=== PATIENT | male | born 1950 | race Caucasian/White ===

== ENCOUNTER 2023-06-29 06:42 | Inpatient (IN) | payer MEDICARE, OTHER, SELFPAY ==
--- NOTE | 2023-05-26 11:33 | CM ---
Patient is scheduled for an elective L TKR on 06/29/23. Spoke with patient prior to surgery via telephone. Introduced role of Orthopedic Navigator. Patient reports that he lives with his in a one story home. There is one step to enter. He
currently functions independently. He has is a rolling walker, cane, shower seat and raised toilet seat. He has never had VN services. PCP is Dr. Mariaa Henriquez.
Discussed orthopedic program and post surgical plans. Reviewed anticipated length of stay and that goal is for him to return home at discharge. Also reviewed outpatient PT. Patient is in agreement with tentative plan and will go directly to
outpatient PT at [facility]. He will have support from his when he goes home.
Patient will complete online education.
Plan: Orthopedic Navigator will remain available to assist with the care of patient and will reassess discharge needs after surgery.
[2023-06-09 08:43] VITALS: BMI 38.6
--- NOTE | 2023-06-09 08:54 | HPS.HSE ---
Family Physician
-
Family Physician: Mariaa Henriquez
Chief Complaint
-
Advanced primary osteoarthritis of the left knee.
History of Present Illness
The patient is a 72-year-old male presenting today for advanced primary osteoarthritis of the left knee. The patient reports significant left knee pain secondary to this diagnosis. He notes that his current left knee pain is greatly
interfering with his activities of daily living and is overall impacting his quality of life. He has tried and failed multiple conservative treatment measures in the past for his left knee pain. These conservative treatment measures include
self-therapeutic exercises, activity modification, multiple aspirations, cortisone injections, medical management with Tylenol and NSAIDs, and the application of ice and/or heat. Recent x-ray findings of the left knee demonstrated medial joint space
narrowing and periarticular spurs about the patella. He was determined to be in need of a left total knee arthroplasty. He denies any current complaints today such as chest pain, shortness of breath, palpitations, nausea, vomiting, diarrhea,
lightheadedness, dizziness, cough, sore throat, or fever.
Medical History
Past Medical History
Past Medical History: Reports Other
Additional Past Medical History:
1. Osteoarthritis.
2. Hypertension.
3. Hypercholesterolemia.
4. Aortic atherosclerosis.
5. Mild valvular disease.
6. Suspected sleep apnea, sleep study pending.
7. GERD.
8. Diverticulosis.
9. Colon polyps.
10. History of H pylori, treated.
11. Bilateral renal cysts.
12. Diarrhea, likely of infectious origin, 04/2022.
13. Lumbar degenerative disc disease.
14. BPH per abdominal CT 10/2022.
15. Basal cell carcinoma, nose, status post excision.
16. Melanoma, back, status post MOHS.
17. Bilateral macular pucker, status post repair.
18. Sepsis secondary to urinary tract infection, 09/2016.
19. Mild hyponatremia.
Past Surgical History: Reports Other
Additional Past Surgical History:
1. Left knee meniscectomy.
2. Lumbar laminectomy and fusion x3.
3. Left shoulder arthroscopy.
4. Left ankle open reduction internal fixation.
5. Bilateral carpal tunnel release.
6. Bilateral trigger finger release.
7. Bilateral cataract extraction.
8. Bilateral macular pucker repair.
9. MOHS.
10. Tonsillectomy.
11. Multiple colonoscopies.
12. Endoscopy.
Social History
Tobacco: Other (He denies any prior cigarette smoking. He reports infrequent cigar use. )
Alcohol: Other (He drinks 3-4 alcoholic beverages approximately 3-4 days a week. )
Personal:
Living: Other (He lives with his in a ranch style home. )
Family History
Family History: Not pertinent
Allergies / Home Medications
Allergy/Medication List:
Home medications:
1. Aspirin 81 mg p.o. at bedtime.
2. Atorvastatin 20 mg p.o. every evening.
3. Enalapril 40 mg p.o. daily.
4. Ibuprofen 400 mg p.o. every 6 hours as needed.
�
Allergies: Synvisc.
Review of Systems
-
A 12 point ROS was completed and negative except as noted: Yes
Physical Exam
Vital Signs
Blood pressure: 146/86. Heart rate 71. Respirations 18. Pulse ox 96% on room air.
Height 5 feet, 8.75 inches. Weight 117.7 kg. BMI 38.6.
Physical Exam
General: Well Developed, Well Nourished and No Apparent Distress
HEENT: NormoCephalic, Moist mucous membranes, Atraumatic and PERRLA
Respiratory: Clear
Cardiac: Regular Rhythm
GI: Soft, Non Tender, Non Distended and Other (Obese. )
Musculoskeletal: Other (Left knee: range of motion 15-120, positive medial joint line tenderness, mild lateral joint line tenderness. Positive patellar grind. Moderate to large effusion. Mild instability to valgus stress. No palpable Oswald's cyst.
Well-healed arthroscopic portals. Pain with terminal extension. )
Skin: Warm and Dry
Neuro: AO x 3 and Nonfocal/grossly intact
Laboratory Results
-
DIAGNOSTIC STUDIES as of 06/09/2023: White blood cell count 6.1. Hemoglobin 14.3. Platelet count 210,000. Sodium 134. Potassium 4.5. BUN 19. Creatinine 1.3. Glucose 97. Hemoglobin A1c 5.6. Calcium 9.3. AST 30. ALT 31. Albumin 4.2. MRSA screen
negative.
EKG provided by Cardiology.
Nuclear stress test 03/10/2019: Ejection fraction is 71%. Dao treadmill score equals +6. Negative EKG for ischemia. Normal perfusion imaging. This is a low risk study.
�
Echocardiogram 06/12/2010: Ejection fraction is 55-60%. Mild mitral regurgitation. Mild tricuspid regurgitation.
Impression/Plan
-
CLEARANCES:
1. Primary medical: Dr. Mariaa Henriquez, cleared.
� � Primary medical phone number: [phone].
2. Cardiology: Dr. Amado Triana, cleared.
3. Dental waived.
IMPRESSION/PLAN:
1. Advanced primary osteoarthritis of the left knee in need of a left total knee arthroplasty by Dr. John Jernigan on 06/28/2022. The benefits and risks of the procedure have been explained to the patient. The patient understands these risks and
wishes to proceed.
2. DVT prophylaxis: Aspirin with bilateral venous compression devices.
3. Infrequent cigar smoking: The patient is fully aware that tobacco use loki-operatively can impair his surgical wound from healing correctly and can greatly increase his risk of post surgical infection. He is agreeable to hold off cigar smoking
until after fully healed from surgery.
Patient's phone number: [phone].
Patient's contact (Vaishali Mistry - Spouse): [phone].
[2023-06-09 09:03] LABS: Hematocrit 41.4 % (39.0-52.0); Hemoglobin 14.3 g/dL (13.0-18.0); Mean Corp Hgb Conc. 34.5 g/dL (33.0-37.0); Mean Corpuscular Hgb 31.9 pg (27.0-31.0); Mean Corpuscular Volume 92.4 fL (80.0-94.0); Mean Platelet Volume 9.7 fL (7.4-10.4); Platelet Count 210 10^3/uL (130-400); Red Blood Cell Count 4.48 10^6/uL (4.70-6.10); Red Cell Dist. Width 13.5 % (11.5-14.5); White Blood Cell Count 6.1 10^3/uL (4.8-10.8)
[2023-06-09 09:06] LABS: ALT (SGPT) 31 U/L (0-50); AST (SGOT) 30 U/L (17-59); Albumin 4.2 g/dl (3.5-5.0); Alkaline Phosphatase 55 U/L (38-126); Blood Urea Nitrogen 19 mg/dl (9-20); Calcium 9.3 mg/dl (8.4-10.2); Carbon Dioxide 27 mmol/L (22-30); Chloride 103 mmol/L (98-107); Estimated Creatinine Clearance 64 ml/min; Glucose 97 mg/dl (70-99); Potassium 4.5 mmol/L (3.5-5.1); Sodium 134 mmol/L (135-145); Total Protein 6.9 g/dl (6.3-8.2); eGFR 58.01
[2023-06-09 11:43] LABS: Glycohemoglobin (HgbA1c) 5.6 % (4.0-5.6)
[2023-06-09 17:05] VITALS: BMI 38.6
[2023-06-29] VITALS (13 sets, daily range): BP systolic 100–159; BP diastolic 58–85; PULSE 75–84; O2SAT 96
[2023-06-29] MEDS: CELEBREX 200 MG PO (10:29)
[2023-06-29] MEDS: TYLENOL 650 MG PO ×3 (10:29→20:11)
[2023-06-29] MEDS: NORMOSOL-R 1000 IV ×2 (10:30→14:56)
[2023-06-29] MEDS: DILAUDID 0.5 MG IV ×3 (14:31→14:44)
--- NOTE | 2023-06-29 14:58 | W.PN.ORTHO ---
Today's Communication / Plan
-
D/c when clinically stable.
Assessment
.
Distal Motor Intact: Yes
Dressing:
Clean, dry and intact.
Assessment:
L knee OA s/p L TKA w/ Dr Jernigan 06/29/23
DVT prophylaxis - ASA, b/l venous foot pumps
HTN - + parameters - monitor BP
Suspected sleep apnea, sleep study pending - monitor O2
GERD - add Pepcid HS
BPH per abdominal CT 10/2022 - monitor voids
- Start daily Flomax during admission
Hypercholesterolemia
Aortic atherosclerosis
Mild valvular disease.
Diverticulosis
History of H pylori, treated
Bilateral renal cysts
Diarrhea, likely of infectious origin, 04/2022
Lumbar degenerative disc disease
Basal cell carcinoma, nose, status post excision
Melanoma, back, status post MOHS
Bilateral macular pucker, status post repair
Sepsis secondary to urinary tract infection, 09/2016
Mild hyponatremia
Plan
.
Surgery / Date: L TKA w/ Dr Jernigan 06/29/23
DVT Prophylaxis: Aspirin
Activity:
Out of bed.
PT/OT
Discharge Plan: Home w/ Outpatient PT
Subjective
.
.:
Patient examined resting in PACU.
Reports 'constant' post-op L knee pain - pain medications adjusted.
Denies any other new significant complaints.
Vital Signs and Labs
.
Vital Signs and Labs:
Lab Results
06/09/23 08:12
06/09/23 08:12
Physical Exam
-
HEENT: No pallor, cyanosis, or jaundice. Throat clear.
NECK: Supple. No JVD.
RESPIRATORY: Lungs clear to auscultation.
CVS: S1, S2 normal. RRR.�
ABDOMEN: Soft, non-tender. No distension. Obese.
EXTREMITIES: Strength equal, no calf pain with palpation/dorsiflexion. Calves soft.
LEDGER POSTER: AOx3. No focal deficits. claims technician grossly intact
[2023-06-29] MEDS: DILAUDID 0.25 MG IV (15:23)
[2023-06-29] MEDS: ROXICODONE 5 MG PO (15:38)
--- NOTE | 2023-06-29 16:16 | PTCARENOTE ---
Patient received from PACU in bed; IVF infusing; Surgical site assessed with NUCLEAR INSTRUCTOR; Patient on 2L NC; Patient and family oriented to room and unit, call garrison within reach; Bed in lowest position, wheels locked; Safety maintained; Assessment ongoing
[2023-06-29] MEDS: TORADOL 30 MG IV (16:44)
[2023-06-29] MEDS: FLOMAX 0.400000000000000022 MG PO (16:44)
[2023-06-29] MEDS: LIDOCAINE 4% PATCH 2 PATCH TOPICAL (16:45)
[2023-06-29] MEDS: NEURONTIN 200 MG PO ×2 (16:52→20:11)
[2023-06-29] MEDS: LIPITOR 20 MG PO (17:38)
[2023-06-29] MEDS: ASPIRIN 325 MG PO (17:38)
[2023-06-29] MEDS: ANCEF 5 IV (20:11)
[2023-06-29] MEDS: DECADRON 4 MG PO (20:11)
[2023-06-29] MEDS: SENOKOT 17.1999999999999993 MG PO (20:11)
[2023-06-29] MEDS: COLACE 100 MG PO (20:11)
[2023-06-29] MEDS: PEPCID 20 MG PO (20:11)
[2023-06-29] MEDS: BACTROBAN 2% OINTMENT 1 APPLIC NASAL (20:14)
[2023-06-30] MEDS: TYLENOL PO (00:45)
[2023-06-30] MEDS: ROXICODONE 5 MG PO (02:40)
[2023-06-30] MEDS: TYLENOL 650 MG PO ×2 (04:10→08:50)
[2023-06-30] MEDS: ANCEF 5 IV (04:11)
[2023-06-30 05:52] VITALS: BMI 39.2
[2023-06-30 07:28] VITALS: BP 135/67
[2023-06-30 08:15] VITALS: BP 134/73; PULSE 94; O2SAT 95
[2023-06-30] MEDS: ASPIRIN 325 MG PO (08:48)
[2023-06-30] MEDS: CELEBREX 200 MG PO (08:48)
[2023-06-30] MEDS: SENOKOT 17.1999999999999993 MG PO (08:48)
[2023-06-30] MEDS: FLOMAX 0.400000000000000022 MG PO (08:49)
[2023-06-30] MEDS: NEURONTIN 200 MG PO (08:49)
[2023-06-30] MEDS: COLACE 100 MG PO (08:50)
[2023-06-30] MEDS: BACTROBAN 2% OINTMENT 1 APPLIC NASAL (08:51)
[2023-06-30] MEDS: DECADRON 4 MG PO (08:51)
--- NOTE | 2023-06-30 08:51 | CM ---
Addendum entered by Lillian Moreau 06/30/23 09:24:
Patient did well with therapy. He has no concerns about going home. He has updated his .
Original Note:
Reviewed chart and held rounds with PT, OT and nursing. Patient admitted as planned for elective L TKR. Met with patient at bedside. Confirmed information previously obtained for assessment. Also discussed discharge plans. The plan is for patient to
return home at discharge. He will have support from his when he goes home. Patient will go directly to outpatient PT and will go to [facility] [place]. He has an appointment scheduled for Thursday, 06/30.
Patient has all needed DME at home.
He will use [facility] pharmacy for discharge prescriptions.
[2023-06-30] MEDS: LIDOCAINE 4% PATCH TOPICAL (08:54)
--- NOTE | 2023-06-30 09:51 | W.PN.ORTHO ---
Today's Communication / Plan
-
D/c today since clinically stable, did well w/ both PT and OT.
Assessment
.
Distal Motor Intact: Yes
Dressing:
Clean, dry and intact.
Assessment:
L knee OA s/p L TKA w/ Dr Jernigan 06/29/23
DVT prophylaxis - ASA, b/l venous foot pumps
HTN - + parameters - BPs stable
Suspected sleep apnea, sleep study pending - O2 stable on RA
GERD - added Pepcid HS
BPH per abdominal CT 10/2022 - voiding appropriately w/ addition of Flomax
- Will have pt continue Flomax x1 week upon d/c for further urinary retention prevention
Hypercholesterolemia
Aortic atherosclerosis
Mild valvular disease.
Diverticulosis
History of H pylori, treated
Bilateral renal cysts
Diarrhea, likely of infectious origin, 04/2022
Lumbar degenerative disc disease
Basal cell carcinoma, nose, status post excision
Melanoma, back, status post MOHS
Bilateral macular pucker, status post repair
Sepsis secondary to urinary tract infection, 09/2016
Mild hyponatremia
Plan
.
Surgery / Date: L TKA w/ Dr Jernigan 06/29/23
DVT Prophylaxis: Aspirin
Activity:
Out of bed.
PT/OT
Discharge Plan: Home w/ Outpatient PT
Subjective
.
.:
Patient resting comfortably in his chair this AM.
L knee pain minimal w/ pain med adjustments made yesterday.
Denies any new significant complaints.
Eager for potential d/c today.
Vital Signs and Labs
.
Vital Signs and Labs:
Lab Results
06/09/23 08:12
06/09/23 08:12
Temp Pulse Resp BP Pulse Ox
97.6 F 73 16 135/67 93
06/30/23 07:28 06/30/23 07:28 06/30/23 07:28 06/30/23 07:28 06/30/23 07:28
Non-invasive Hgb result: 13.2
Physical Exam
-
HEENT: No pallor, cyanosis, or jaundice. Throat clear.
NECK: Supple. No JVD.
RESPIRATORY: Lungs clear to auscultation.
CVS: S1, S2 normal. RRR.�
ABDOMEN: Soft, non-tender. No distension. Obese.
EXTREMITIES: Strength equal, no calf pain with palpation/dorsiflexion. Calves soft.
COMPLEX COMMERCIAL LITIGATION PARALEGAL: AOx3. No focal deficits. trumpet player grossly intact
--- NOTE | 2023-06-30 10:01 | W.DS.TRANS ---
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
-
Discharge Instructions:
Sleep Apnea Risk High
Discharge Diagnosis/Procedures L knee OA s/p L TKA w/ Dr Jernigan 06/29/23
Diet Regular
Activity As tolerated,With Walker
Driving Restrictions Not until seen by your Dr
Bathing Restrictions OK to Shower
Other Services PT
Wound Care Dressing to be removed 1 week post-surgery.
[place] to be removed in 2 weeks at follow-up
appointment with surgeon's office.
Instructions:
Stand-Alone Forms: Total Hip/Knee Replacement D/C
Changes to Home Medications: Yes
Discharge Medications:
DC Medications w/original date entered in [employer]
atorvastatin 20 mg tablet 20 mg PO QPM High Cholesterol 09/29/16
mupirocin 2 % topical ointment 1 applic intranasal BID #1 tube 06/09/23
acetaminophen 500 mg tablet (Tylenol Extra Strength) 1,000 mg PO Q6H #30 tabs 06/30/23
aspirin 325 mg tablet 325 mg PO DAILY #30 tabs 06/30/23
celecoxib 200 mg capsule 200 mg PO DAILY #30 caps 06/30/23
dexamethasone 4 mg tablet 4 mg PO BID #5 tabs 06/30/23
docusate sodium 100 mg capsule 100 mg PO BID #30 caps 06/30/23
enalapril maleate 20 mg tablet 40 mg PO DAILY Blood Pressure #0 tabs 06/30/23
famotidine 20 mg tablet 20 mg PO HS #30 tabs 06/30/23
gabapentin 100 mg capsule 200 mg PO TID #30 caps 06/30/23
lidocaine 4 % topical patch 2 patch topical DAILY #30 ea 06/30/23
ondansetron HCl 4 mg tablet 4 mg PO Q6H PRN nausea and vomiting #30 tabs 06/30/23
oxycodone 5 mg tablet 5 - 10 mg PO Q6H PRN moderate-severe pain #30 tabs 06/30/23
sennosides 8.6 mg tablet (Senna Lax) 17.2 mg PO BID #30 tabs 06/30/23
tamsulosin 0.4 mg capsule 0.4 mg PO DAILY #7 caps 06/30/23
Home Medication Changes
acetaminophen 500 mg tablet (Tylenol Extra Strength) 1,000 mg PO Q6H #30 tabs 06/30/23
aspirin 325 mg tablet 325 mg PO DAILY #30 tabs 06/30/23
celecoxib 200 mg capsule 200 mg PO DAILY #30 caps 06/30/23
dexamethasone 4 mg tablet 4 mg PO BID #5 tabs 06/30/23
docusate sodium 100 mg capsule 100 mg PO BID #30 caps 06/30/23
famotidine 20 mg tablet 20 mg PO HS #30 tabs 06/30/23
gabapentin 100 mg capsule 200 mg PO TID #30 caps 06/30/23
lidocaine 4 % topical patch 2 patch topical DAILY #30 ea 06/30/23
ondansetron HCl 4 mg tablet 4 mg PO Q6H PRN nausea and vomiting #30 tabs 06/30/23
oxycodone 5 mg tablet 5 - 10 mg PO Q6H PRN moderate-severe pain #30 tabs 06/30/23
sennosides 8.6 mg tablet (Senna Lax) 17.2 mg PO BID #30 tabs 06/30/23
tamsulosin 0.4 mg capsule 0.4 mg PO DAILY #7 caps 06/30/23
Pending Results: No
[2023-06-30 10:17] VITALS: BP 140/71; O2SAT 96
[2023-06-30 10:40] VITALS: BP 134/63
== END 2023-06-30 11:22 | disposition home or self-care (01) | DRG 470 ==
LOC: 2 SOUTH 06:42
PROVIDERS: ADMITTING PHYSICIAN Specialist; FAMILY PHYSICIAN Family Medicine
PROC: 0SRD0J9 Replacement of Left Knee Joint with Synthetic Substitute, Cemented, Open Approach (ICD-10-PCS; 2023-06-29)
DX: M17.12 Unilateral primary osteoarthritis, left knee (principal); I10 Essential (primary) hypertension; K21.9 Gastro-esophageal reflux disease without esophagitis; N40.0 Benign prostatic hyperplasia without lower urinary tract symptoms; E78.00 Pure hypercholesterolemia, unspecified
CPT/HCPCS: 36415; 73560; 80053; 83036; 85027; 87070; 97110; 97116; 97162; 97166; 97530; C1713; C1776

== ENCOUNTER 2025-04-17 07:27 | Inpatient (IN) | payer MEDICARE, OTHER, SELFPAY ==
--- NOTE | 2025-03-20 09:59 | CM ---
Demographics: confirmed
Living situation: lives with
Support Person Post Operatively:
History of
VN: no
SNF: no
Outpatient: Patient knows to make appointment, unclear if he is going to use [facility]
Has patient purchased required equipment: yes, walker, cane shower chair
PCP: [place]
Pharmacy: [facility]
Post Operative Discharge Plan: Home with , outpatient PT.
[2025-03-31 10:55] LABS: Hematocrit 44.4 % (39.0-52.0); Hemoglobin 14.8 g/dL (13.0-18.0); Mean Corp Hgb Conc. 33.3 g/dL (33.0-37.0); Mean Corpuscular Volume 92.7 fL (80.0-94.0); Nucleated Red Blood Cells % 0 % (-); Platelet Count 205 10^3/uL (130-400); Red Cell Dist. Width 12.4 % (11.5-14.5)
[2025-03-31 11:16] LABS: Glycohemoglobin (HgbA1c) 5.7 % (4.0-5.9)
[2025-03-31 13:40] VITALS: BMI 39.7
[2025-03-31 14:24] LABS: ALT (SGPT) 24 U/L (0-50); AST (SGOT) 23 U/L (17-59); Albumin 4.5 g/dl (3.5-5.0); Alkaline Phosphatase 48 U/L (38-126); Blood Urea Nitrogen 21 mg/dl (9-20); Calcium 9.2 mg/dl (8.4-10.2); Carbon Dioxide 27 mmol/L (22-30); Chloride 102 mmol/L (98-107); Estimated Creatinine Clearance 71 ml/min; Glucose 87 mg/dl (70-99); Potassium 4.7 mmol/L (3.5-5.1); Sodium 135 mmol/L (135-145); Total Protein 7.1 g/dl (6.3-8.2); eGFR > 60.00
[2025-03-31 17:58] VITALS: BMI 39.7
[2025-04-17] VITALS (14 sets, daily range): BP systolic 131–162; BP diastolic 71–97; PULSE 83; O2SAT 92; BMI 39.7
[2025-04-17] MEDS: BACTROBAN NASAL 1 GRAM NASAL (07:52)
[2025-04-17] MEDS: CELEBREX 200 MG PO (07:52)
[2025-04-17] MEDS: TYLENOL 650 MG PO ×3 (07:52→20:41)
[2025-04-17] MEDS: NORMOSOL-R/PLASMALYTE-A 1000 IV ×2 (08:03→13:50)
--- NOTE | 2025-04-17 08:54 | W.DS.TRANS ---
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
-
Discharge Instructions:
Sleep Apnea Risk High
Discharge Diagnosis/Procedures R TKA Dr Jernigan 04/17/25
Diet As tolerated
Activity With Walker
Driving Restrictions No driving
Bathing Restrictions OK to Shower
Other Services PT
Instructions:
Stand-Alone Forms: Total Hip/Knee Replacement D/C
Changes to Home Medications: Yes
Discharge Medications:
DC Medications w/original date entered in [employer]
atorvastatin 40 mg tablet 40 mg PO HS 03/29/25
diphenhydramine HCl 25 mg capsule (ZzzQuil) 25 mg PO HS PRN sleep 03/29/25
cefadroxil 500 mg capsule 500 mg PO BID infection prevention #14 caps 03/31/25
celecoxib 200 mg capsule 200 mg PO DAILY Anti-inflammatory #14 caps 03/31/25
dexamethasone 4 mg tablet 4 mg PO BID inflammation #6 tabs 03/31/25
famotidine 20 mg tablet 20 mg PO HS GI prophylaxis #30 tabs 03/31/25
gabapentin 300 mg capsule 300 mg PO HS sleep/pain #10 caps 03/31/25
mupirocin 2 % topical ointment 1 applic topical BID infection prevention #1 tube 03/31/25
ondansetron 4 mg disintegrating tablet 4 mg PO Q6H PRN n/v #20 tabs 03/31/25
oxycodone 5 mg tablet 5 mg PO Q6H PRN 1 tab moderate pain, 2 tabs severe pain #30 tabs 03/31/25
Saccharomyces boulardii 250 mg capsule (Florastor) 250 mg PO BID #1 cap 04/17/25
acetaminophen 325 mg tablet (Tylenol) 650 mg (2 x 325 mg) PO QID #1 tab 04/17/25
aspirin 325 mg tablet 325 mg PO DAILY blood clot prevention #1 tab 04/17/25
docusate sodium 100 mg capsule (Colace) 100 mg PO BID stool softner #1 cap 04/17/25
enalapril maleate 20 mg tablet 40 mg (2 x 20 mg) PO DAILY Blood Pressure #0 tabs 04/17/25
magnesium hydroxide 400 mg/5 mL oral suspension (Milk of Magnesia) 30 ml PO HS PRN constipation #1 mL 04/17/25
sennosides 8.6 mg tablet (Senokot) 17.2 mg (2 x 8.6 mg) PO BID laxative #2 tabs 04/17/25
Home Medication Changes
mupirocin 2 % topical ointment 1 applic topical BID infection prevention #1 tube 03/31/25
ondansetron 4 mg disintegrating tablet 4 mg PO Q6H PRN n/v #20 tabs 03/31/25
oxycodone 5 mg tablet 5 mg PO Q6H PRN 1 tab moderate pain, 2 tabs severe pain #30 tabs 03/31/25
Saccharomyces boulardii 250 mg capsule (Florastor) 250 mg PO BID #1 cap 04/17/25
acetaminophen 325 mg tablet (Tylenol) 650 mg (2 x 325 mg) PO QID #1 tab 04/17/25
aspirin 325 mg tablet 325 mg PO DAILY blood clot prevention #1 tab 04/17/25
docusate sodium 100 mg capsule (Colace) 100 mg PO BID stool softner #1 cap 04/17/25
enalapril maleate 20 mg tablet 40 mg (2 x 20 mg) PO DAILY Blood Pressure #0 tabs 04/17/25
magnesium hydroxide 400 mg/5 mL oral suspension (Milk of Magnesia) 30 ml PO HS PRN constipation #1 mL 04/17/25
sennosides 8.6 mg tablet (Senokot) 17.2 mg (2 x 8.6 mg) PO BID laxative #2 tabs 04/17/25
Pending Results: No
[2025-04-17] MEDS: ROXICODONE 5 MG PO ×3 (13:05→20:43)
[2025-04-17] MEDS: ASPIRIN 325 MG PO (18:01)
[2025-04-17] MEDS: ANCEF 5 IV (18:01)
[2025-04-17] MEDS: COLACE 100 MG PO (20:42)
[2025-04-17] MEDS: SENOKOT 17.2 MG PO (20:42)
[2025-04-17] MEDS: BACTROBAN 2% OINTMENT 1 APPLIC NASAL (20:42)
[2025-04-17] MEDS: TORADOL 15 MG IV (20:42)
[2025-04-17] MEDS: DECADRON 4 MG IV (20:42)
[2025-04-17] MEDS: BENADRYL 25 MG PO (21:54)
[2025-04-17] MEDS: LIPITOR 40 MG PO (21:54)
[2025-04-17] MEDS: NEURONTIN 300 MG PO (21:54)
[2025-04-17] MEDS: PEPCID 20 MG PO (21:55)
[2025-04-18] MEDS: TYLENOL PO (00:30)
[2025-04-18] MEDS: ANCEF 5 IV (02:58)
[2025-04-18] MEDS: TYLENOL 650 MG PO ×2 (03:00→07:50)
[2025-04-18 03:08] VITALS: BP 139/68
[2025-04-18 07:15] VITALS: BP 171/68
[2025-04-18] MEDS: SENOKOT 17.2 MG PO (07:49)
[2025-04-18] MEDS: VASOTEC 20 MG PO (07:49)
[2025-04-18] MEDS: COLACE 100 MG PO (07:49)
[2025-04-18] MEDS: CELEBREX 200 MG PO (07:49)
[2025-04-18] MEDS: DECADRON 4 MG IV (07:50)
[2025-04-18] MEDS: ASPIRIN 325 MG PO (07:50)
[2025-04-18] MEDS: TORADOL 15 MG IV (07:50)
[2025-04-18] MEDS: BACTROBAN 2% OINTMENT 1 APPLIC NASAL (07:51)
[2025-04-18] MEDS: ROXICODONE 5 MG PO (08:58)
[2025-04-18 09:05] VITALS: BP 114/54; BP 130/53; PULSE 88
[2025-04-18 10:27] VITALS: BP 126/55
--- NOTE | 2025-04-18 10:43 | CM ---
Met with patient at bedside; IMM benefit explained; form signed @ 1040; will transport patient home
Plan: Discharge to home today w/ outpatient therapy starting tomorrow
--- NOTE | 2025-04-18 12:28 | W.PN.ORTHO ---
Today's Communication / Plan
-
d/c
Assessment
.
Distal Motor Intact: Yes
Dressing:
Clean, dry and intact.
Assessment:
HTN-accelerated this am-improved s/p Enalapril and pain control
Plan
.
Surgery / Date: R TKA Dr Jernigan 04/17/25
DVT Prophylaxis: Aspirin
Activity:
Out of bed.
PT/OT
Discharge Plan: Home w/ Outpatient PT
Subjective
.
.:
Patient resting comfortably.
Vital Signs and Labs
.
Vital Signs and Labs:
Lab Results
03/31/25 09:36
03/31/25 09:36
Temp Pulse Resp BP Pulse Ox
98.4 F 81 16 126/55 98
04/18/25 07:15 04/18/25 10:27 04/18/25 07:15 04/18/25 10:27 04/18/25 07:15
Non-invasive Hgb result: 15.8
Physical Exam
-
HEENT: No pallor, cyanosis, or jaundice. Throat clear.
NECK: Supple. No JVD.
RESPIRATORY: Lungs clear to auscultation.
CVS: S1, S2 normal. RRR.� No murmur, rub or gallop.
ABDOMEN: Soft, non-tender. No distension. BS+/normal.
EXTREMITIES: strength equal, no calf pain with palpation
SENIOR CLINICAL STUDY MANAGER: AOx3. No focal deficits. fact checker grossly intact
== END 2025-04-18 11:19 | disposition home or self-care (01) | DRG 470 ==
LOC: 2 SOUTH 07:27
PROVIDERS: ADMITTING PHYSICIAN Specialist; FAMILY PHYSICIAN Family Medicine; REFERRING PHYSICIAN Internal Medicine Cardiovascular Disease
PROC: 0SRC0J9 Replacement of Right Knee Joint with Synthetic Substitute, Cemented, Open Approach (ICD-10-PCS; 2025-04-17)
DX: M17.11 Unilateral primary osteoarthritis, right knee (principal); Z68.41 Body mass index [BMI] 40.0-44.9, adult; E66.01 Morbid (severe) obesity due to excess calories; I10 Essential (primary) hypertension; E78.5 Hyperlipidemia, unspecified; G47.33 Obstructive sleep apnea (adult) (pediatric); K21.9 Gastro-esophageal reflux disease without esophagitis; N40.0 Benign prostatic hyperplasia without lower urinary tract symptoms; M51.369 Other intervertebral disc degeneration, lumbar region without mention of lumbar back pain or lower extremity pain; Z96.652 Presence of left artificial knee joint; Z86.19 Personal history of other infectious and parasitic diseases; Z85.820 Personal history of malignant melanoma of skin; Z79.82 Long term (current) use of aspirin
CPT/HCPCS: 36415; 73560; 80053; 83036; 85025; 87070; 97110; 97116; 97162; 97166; C1713; C1776